=== PATIENT | female | born 1950 | race Two or more races ===

== ENCOUNTER 2017-05-29 09:49 | Day surgery (SDC) | payer MEDICARE ==
[2017-05-29] MEDS ORDERED: MIDAZOLAM 2 MG/2 ML VIAL IVP ONE (09:50)
[2017-05-29] MEDS ORDERED: fentaNYL 100 MCG/2 ML VIAL IVP ONE (09:50)
[2017-05-29] MEDS ORDERED: GLUCAGON 1 MG/ML VIAL IM ONE (09:50)
[2017-05-29] MEDS ORDERED: LACTATED RINGERS 1,000 ML IV ONE ×2 (10:33→11:07)
[2017-05-29] MEDS ORDERED: PROPOFOL 200 MG/20 ML VIAL IVP ONE (11:20)
[2017-05-29 12:17] VITALS: BP 96/66
== END 2017-05-29 09:50 | disposition home or self-care (01) ==
LOC: SDS 09:49
PROVIDERS: ATTEND Surgery
PROC: 0DBK8ZX Excision of Ascending Colon, Via Natural or Artificial Opening Endoscopic, Diagnostic (ICD-10-PCS; principal; 2017-05-29 10:45)
DX: Z12.11 Encounter for screening for malignant neoplasm of colon (principal); D12.2 Benign neoplasm of ascending colon; J44.9 Chronic obstructive pulmonary disease, unspecified
CPT/HCPCS: 45384; J7120

== ENCOUNTER 2017-06-16 08:59 | Outpatient (CLI) | payer MEDICARE ==
[2017-06-16] MEDS ORDERED: ALBUTEROL NEB 2.5 MG/3 ML INH ONE (11:00)
== END 2017-06-16 09:00 | disposition home or self-care (01) ==
LOC: RT 08:59
PROVIDERS: ATTEND Specialist
DX: J44.9 Chronic obstructive pulmonary disease, unspecified (principal)
CPT/HCPCS: 93005; 93041; 94060; 94664; 94729; J7613

== ENCOUNTER 2017-07-02 14:50 | Outpatient (CLI) | payer MEDICARE ==
--- NOTE | 2017-07-04 15:59 | DEXA Report ---
DEXA SCAN: 07/02/2017 CLINICAL INDICATION: Postmenopausal. TECHNIQUE: Dual energy x-ray absorptiometry (DXA) was performed on a [employer] system. Regions measured are the AP spine, femoral neck, and, if needed, forearm. COMPARISON: None. In accordance with the International Society for Clinical Densitometry (ISCD) guidelines, data from previous exams may be reanalyzed using current recommendations and techniques. This is done to allow a more accurate basis for comparison with the current study. FINDINGS: The data for the lumbar spine is as follows: REGION BMD (g/cm/cm) T-SCORE Z-SCORE L1 0.789 -2.8 -0.6 L2 0.845 -3.0 -0.7 L3 0.916 -2.4 -0.1 L4 0.969 -1.9 0.4 TOTAL 0.891 -2.4 -0.1 NOTE: All evaluable vertebrae are used for classification. The data for the hip is as follows: REGION BMD (g/cm/cm) T-SCORE Z-SCORE Neck 0.708 -2.4 -0.4 TOTAL 0.689 -2.5 -0.8 NOTE: The femoral neck or total proximal femur, whichever is lowest, is used for classification. IMPRESSION: THE WHO CLASSIFICATION BASED ON THE INTERNATIONAL REFERENCE STANDARD IS OSTEOPOROSIS. THE FRACTURE RISK IS HIGH. RECOMMENDATION: Patients with diagnosis of osteoporosis or osteopenia should have regular bone mineral density assessment. For those eligible for Medicare, routine testing is allowed once every 2 years. Testing frequency can be increased for patients who have rapidly progressing disease or for those who are receiving medical therapy to restore bone mass. COMMENT: World Health Organization (WHO) definitions for osteoporosis and osteopenia: NORMAL BMD: T-score at 1.0 or higher, fracture risk is low. OSTEOPENIA BMD: T-score between 1.0 and -2.5, fracture risk is increased. OSTEOPOROSIS BMD: T-score at 2.5 or lower, fracture risk high. National Osteoporosis Foundation recommends: 1. Obtain adequate dietary calcium (at least 1200 mg per day) and vitamin D (400 -800 international units per day). 2. Participate, as appropriate, in regular weightbearing and muscle- strengthening exercise. 3. Avoid tobacco use and reduce alcohol and caffeine intake. 4. For more detailed information see the website at www.NOF.org. TD: 07/03/2017 14:16 NEMO
== END 2017-07-02 14:51 | disposition home or self-care (01) ==
LOC: DI 14:50
PROVIDERS: ATTEND Specialist
DX: Z13.820 Encounter for screening for osteoporosis (principal); M81.0 Age-related osteoporosis without current pathological fracture; Z78.0 Asymptomatic menopausal state
CPT/HCPCS: 77080

== ENCOUNTER 2017-07-02 14:51 | Outpatient (CLI) | payer MEDICARE ==
--- NOTE | 2017-07-03 18:33 | Mammography Report ---
DIGITAL SCREENING MAMMOGRAM: 07/02/2017 CLINICAL INDICATION: A 66-year-old with history of late childbearing for baseline. TECHNIQUE: Routine CC and MLO projections as well as bilateral laterally exaggerated craniocaudal views were obtained of the breasts. FINDINGS: The breasts demonstrate heterogeneously dense fibroglandular parenchyma bilaterally. A few punctate, typically benign calcifications are present. No suspicious masses, clustered microcalcifications, or regions of architectural distortion are identified. IMPRESSION: BENIGN FINDINGS. RECOMMENDATIONS: ROUTINE ANNUAL SCREENING UNLESS OTHERWISE CLINICALLY INDICATED. BIRADS category 2 benign findings. STANDARD QUALIFYING STATEMENTS 1. This examination was reviewed with the aid of Computed-Aided Detection (CAD). 2. A negative or benign imaging report should not delay biopsy if clinically suspicious findings are present. Consider surgical consultation if warranted. More than 5% of cancers are not identified by imaging. 3. Dense breasts may obscure an underlying neoplasm. TD: 07/03/2017 18:33
== END 2017-07-02 14:52 | disposition home or self-care (01) ==
LOC: DI 14:51
PROVIDERS: ATTEND Specialist
DX: Z12.31 Encounter for screening mammogram for malignant neoplasm of breast (principal)
CPT/HCPCS: 77067

== ENCOUNTER 2018-02-11 14:12 | Outpatient (CLI) | payer MEDICARE ==
--- NOTE | 2018-02-11 17:03 | Ultrasound Report ---
Reason: LEFT BREAST Procedure Date: 02/11/2018 Accession Number: [id number] / [id number] Procedure: US - Breast Unilateral Limited CPT Code: FULL RESULT: EXAM: Diagnostic Dig LT, Breast Unilateral Limited DATE: 02/11/2018 3:55 PM CLINICAL HISTORY: 67-year-old female presents with a palpable lump in her left breast. TECHNIQUE: Left CC and LM views were obtained. Focused breast ultrasound was also performed. COMPARISON: 07/02/2017. FINDINGS: The breasts demonstrate extremely dense parenchyma bilaterally, limiting the sensitivity of mammography. There is no mammographic finding to correlate with the BB marker placement. Focused breast ultrasound reveals normal breast tissue and the palpable finding is identified as a rib, benign finding. IMPRESSION: Benign findings RECOMMENDATION: Recommend routine annual Screening mammography unless otherwise clinically indicated. BIRADS CATEGORY 2: Benign findings STANDARD QUALIFYING STATEMENTS: 1. This examination was not reviewed with the aid of Computer-Aided Detection (CAD). 2. A negative or benign imaging report should not delay biopsy if clinically suspicious findings are present. Consider surgical consultation if warrented. More than 5% of cancers are not identified by imaging. 3. Dense breasts may obscure an underlying neoplasm.
== END 2018-02-11 14:13 | disposition home or self-care (01) ==
LOC: DI 14:12
PROVIDERS: ATTEND Family Medicine
DX: N63.22 Unspecified lump in the left breast, upper inner quadrant (principal)
CPT/HCPCS: 76642

== ENCOUNTER 2018-08-24 12:29 | Outpatient (CLI) | payer MEDICARE ==
--- NOTE | 2018-08-26 08:58 | MRI Report ---
Reason: BACK PAIN, LUMBAR, WITH RADICULOPATHY Procedure Date: 08/24/2018 Accession Number: [id number] / [id number] Procedure: MRI - Lumbar Spine W/O CPT Code: FULL RESULT: EXAM: MRI LUMBAR SPINE WITHOUT CONTRAST EXAM DATE: 08/24/2018 01:15 PM. CLINICAL HISTORY: Low back pain, lumbar, with radiculopathy. COMPARISON: None. TECHNIQUE: Multiplanar, multisequence T1-weighted and fluid-sensitive sequences of the lumbar spine from T12 to S1 without contrast. Other: None. FINDINGS: Spinal Canal: The conus terminates at L1-L2. The conus medullaris and cauda equina are unremarkable. Alignment: There is a 7 mm grade 1 anterolisthesis at L5-S1. Bone Marrow: Five [id number]-[id number] lumbar vertebral bodies are assumed. There is marrow edema at L4-L5 and L5-S1. Disk Levels/Facets: T12-L1: Unremarkable. L1-L2: There is a broad-based posterior disk bulge with minimal canal narrowing. The foramina are patent. L2-L3: Mild facet joint osteoarthritis. The canal and foramina are patent. L3-L4: There is disk desiccation and loss of disk height. There is mild facet joint osteoarthritis. There is minimal canal narrowing. There is minimal bilateral foraminal narrowing. L4-L5: There is a broad-based posterior disk bulge with moderate facet joint osteoarthritis causing mild canal narrowing. There is moderate bilateral foraminal narrowing. L5-S1: There is moderate canal narrowing secondary to severe facet joint osteoarthritis and an anterolisthesis. Facet joint osteophytes contact both S1 nerve roots in the lateral recesses. There is mild bilateral foraminal narrowing. Musculature: Normal. No edema or fatty atrophy. Other: The partially visualized retroperitoneum is unremarkable. IMPRESSION: 1. There is a grade 1 anterolisthesis at L5-S1. 2. L3-L4: Minimal canal narrowing. There is minimal bilateral foraminal narrowing. 3. L4-L5: Mild canal narrowing. There is moderate bilateral foraminal narrowing. 4. L5-S1: There is moderate canal narrowing secondary to severe facet joint osteoarthritis and an anterolisthesis. Facet joint osteophytes contact both S1 nerve roots in the lateral recesses. There is mild bilateral foraminal narrowing. Comment: The following findings are so common in adults without low back pain that while we report their presence, they must be interpreted with caution and in the context of the clinical situation. (Reference Jakek et al, Spine 2001) Prevalence of findings in patients without low back pain: Disk degeneration (any evidence): 92% Disk desiccation/T2 signal loss: 83% Disk height loss: 56% Disk bulge: 64% Disk protrusion: 32% Annular tear/high intensity zone: 38% RADIA
== END 2018-08-24 12:30 | disposition home or self-care (01) ==
LOC: DI 12:29
PROVIDERS: ATTEND Family Medicine
DX: M51.36 Other intervertebral disc degeneration, lumbar region (principal); M48.061 Spinal stenosis, lumbar region without neurogenic claudication; M47.9 Spondylosis, unspecified; M43.16 Spondylolisthesis, lumbar region; M48.07 Spinal stenosis, lumbosacral region
CPT/HCPCS: 72148

== ENCOUNTER 2020-01-02 11:29 | Outpatient (CLI) | payer MEDICARE ==
[2020-01-02 18:13] LABS: BASOPHILS # (AUTO) 0.1 10^3/uL (0.0-0.1); BASOPHILS % (AUTO) 0.9 %; EOSINOPHILS # (AUTO) 0.3 10^3/uL (0.0-0.7); EOSINOPHILS % (AUTO) 5.7 %; HGB - HEMOGLOBIN 13.4 g/dL (12.0-16.0); LYMPHOCYTES # (AUTO) 2.4 10^3/uL (1.5-3.5); LYMPHOCYTES % (AUTO) 41.2 %; MEAN CORPUSCULAR HEMOGLOBIN 29.3 pg (27.0-31.0); MEAN CORPUSCULAR HGB CONC 30.6 g/dL (32.0-36.0); MEAN CORPUSCULAR VOLUME 95.8 fL (81.0-99.0); MEAN PLATELET VOLUME 9.1 fL (7.9-10.8); MONOCYTES # (AUTO) 0.3 10^3/uL (0.0-1.0); MONOCYTES % (AUTO) 4.8 %; NEUTROPHILS # (AUTO) 2.8 10^3/uL (1.5-6.6); NEUTROPHILS % (AUTO) 47.2 %; PLT - PLATELET COUNT 336 10^3/uL (130-450); RED BLOOD COUNT 4.57 10^6/uL (4.20-5.40); RED CELL DISTRIBUTION WIDTH 12.5 % (12.0-15.0); WHITE BLOOD COUNT 5.8 x10^3/uL (4.8-10.8)
[2020-01-02 18:26] LABS: ALBUMIN/GLOBULIN RATIO 1.1 (1.0-2.2); ALKALINE PHOSPHATASE 39 IU/L (42-121); ALT ALANINE AMINOTRANSFERASE 15 IU/L (10-60); AST ASPARTATE AMINOTRANSFERASE 18 IU/L (10-42); BILIRUBIN,TOTAL 0.8 mg/dL (0.2-1.0); BUN - BLOOD UREA NITROGEN 14 mg/dL (6-20); CALCIUM 9.1 mg/dL (8.5-10.3); CARBON DIOXIDE - CO2 29 mmol/L (21-32); CHLORIDE 105 mmol/L (101-111); CHOLESTEROL 195 mg/dL; CREATININE 0.7 mg/dL (0.4-1.0); GLUCOSE 90 mg/dL (70-100); HDL CHOLESTEROL 66 mg/dL; LDL CHOLESTEROL,CALCULATED 118 mg/dL; LDL/HDL RATIO 1.8 (<4.4); MAGNESIUM 2.3 mg/dL (1.7-2.8); SODIUM 141 mmol/L (135-145); TOTAL PROTEIN 7.7 g/dL (6.7-8.2); VLDL CHOLESTEROL 11 mg/dL
== END 2020-01-02 23:59 | disposition home or self-care (01) ==
LOC: LAB.WCP 11:29
PROVIDERS: ATTEND Family Medicine
DX: Z00.00 Encounter for general adult medical examination without abnormal findings (principal); R05 Cough
CPT/HCPCS: 36415; 80053; 80061; 83721; 83735; 84443; 85025; 86769

== ENCOUNTER 2020-01-05 11:30 | Outpatient (CLI) | payer MEDICARE | END 2020-01-05 23:59 | disposition home or self-care (01) | LOC: COV 11:30 | PROVIDERS: ATTEND Family Medicine | DX: R05 Cough (principal); R53.83 Other fatigue; R06.02 Shortness of breath; Z20.828 Contact with and (suspected) exposure to other viral communicable diseases ==

== ENCOUNTER 2020-01-16 14:23 | Outpatient (CLI) | payer MEDICARE ==
--- NOTE | 2020-01-16 16:35 | DEXA Report ---
PROCEDURE: Dexa Spine and/or Hip INDICATIONS: OSTEOPOROSIS TECHNIQUE: Dual energy x-ray absorptiometry (DXA) was performed on a [employer] System. Regions measur ed are the AP Spine, femoral neck, and if needed forearm. COMPARISON: None. FINDINGS: Lumbar Spine: Bone Mineral Density 0.945 g/cm/cm,T score -2.0, osteopenia Left Hip: Bone Mineral Density 0.678 g/cm/cm,T score -2.6, osteoporosis Left Femoral Neck: Bone Mineral Density 0.724 g/cm/cm, T score -2.3, osteopenia (T score greater or equal to -1.0: NORMAL) (T score from -1.1 to -2.4: OSTEOPENIA) (T score less than or equal to -2.5 to: OSTEOPOROSIS) Impression: Osteoporosis Patients with diagnosis of osteoporosis or osteopenia should have regular bone mineral density assess ment. For those eligible for Medicare, routine testing is allowed once every 2 years. Testing frequ ency can be increased for patients who have rapidly progressing disease or for those who are receivin g medical therapy to restore bone mass. Reviewed by: Letty Middleton MD, PhD on 01/16/2020 4:33 PM PDT Approved by: Letty Middleton MD, PhD on 01/16/2020 4:33 PM PDT Station ID: [id number]
== END 2020-01-16 14:24 | disposition home or self-care (01) ==
LOC: DI 14:23
PROVIDERS: ATTEND Family Medicine
DX: M81.0 Age-related osteoporosis without current pathological fracture (principal)
CPT/HCPCS: 77080

== ENCOUNTER 2020-05-26 13:16 | Outpatient (CLI) | payer MEDICARE ==
--- NOTE | 2020-05-27 12:30 | Mammography Report ---
BILATERAL DIGITAL SCREENING MAMMOGRAM 3D/2D: 05/26/2020 CLINICAL: Routine screening. Comparison is made to exams dated: 02/11/2018 mammogram, 02/11/2018 ultrasound, and 07/02/2017 mammogra m - [facility]. The tissue of both breasts is predominantly fatty. No significant masses, calcifications, or other findings are seen in either breast. There has been no significant interval change. IMPRESSION: NEGATIVE There is no mammographic evidence of malignancy. A 1 year screening mammogram is recommended. This exam was interpreted at Station ID: [id number]. NOTE: For mammograms, a report in lay terms will be sent to the patient. Approximately 15% of breast malignancies will not be visualized mammographically. In the management of a palpable breast mass, a negative mammogram must not discourage biopsy of a clinically suspicious lesion. Electronically Signed By: Dequan Villalpando M.D., jr/russel:05/26/2020 15:21:32 ACR BI-RADS Category 1: Negative 3341F PARENCHYMAL PATTERN: (F) - The breast(s) demonstrate(s) diffuse fatty replacement. BI-RADS CATEGORY: (1) - 1 RECOMMENDATION: (ANNUAL) - Recommend routine annual screening mammography. [id number] 1 year screening LATERALITY: (B)
== END 2020-05-26 13:17 | disposition home or self-care (01) ==
LOC: DI.N 13:16
DX: Z12.31 Encounter for screening mammogram for malignant neoplasm of breast (principal)
CPT/HCPCS: 77067

== ENCOUNTER 2020-07-08 13:12 | Outpatient (CLI) | payer MEDICARE ==
--- NOTE | 2020-07-08 14:08 | XRAY Report ---
PROCEDURE: Chest 2 View X-Ray INDICATIONS: HEMOPTYSIS TECHNIQUE: 2 view(s) of the chest. COMPARISON: Chest x-ray 01/11/2018 FINDINGS: Surgical changes and devices: None. Lungs and pleura: Emphysematous changes are present. Patchy consolidation is noted in the left base. It is relatively stable compared to prior exam. Lungs demonstrate mild hyperexpansion. Mediastinum: Mediastinal contours are normal. Heart size is normal. Bones and chest wall: No suspicious bony abnormalities. Soft tissues appear unremarkable. IMPRESSION: Patchy consolidation within the left base similar in appearance to 2018. While this cou ld represent a chronic focus of infection/inflammation, other etiologies such as malignancy cannot be excluded. CT chest with contrast is recommended for further evaluation. The above findings were called to Dr. Clay Bautista on 07/08/2020 at 1:40 PM. Reviewed by: Rajani Cabrera MD on 07/08/2020 1:46 PM PST Approved by: Rajani Cabrera MD on 07/08/2020 1:46 PM PST Station ID: [id number]
== END 2020-07-08 13:13 | disposition home or self-care (01) ==
LOC: DI.N 13:12
PROVIDERS: ATTEND Emergency Medicine
DX: R04.2 Hemoptysis (principal); J18.1 Lobar pneumonia, unspecified organism

== ENCOUNTER 2020-07-08 14:17 | Emergency (ER) | payer MEDICARE ==
--- NOTE | 2020-07-08 14:59 | ED Physician Documentation ---
History of Present Illness - Stated complaint Stated Complaint: COUGHING UP BLOOD - Chief complaint Chief Complaint: Resp - History obtained from History obtained from: Patient - History of Present Illness Timing: How many days ago (3) Pain level max: 0 Pain level now: 0 - Additonal information Additional information: 69-year-old female presents to the emergency department with a cough for the past 3 days. Has a history of chronic bronchitis and recurrent pneumonia. Started coughing up streaks of blood mixed in with the mucus 3 days ago. Nothing makes it better or worse. No fever. No chills. Does use an inhaler when she is sick. She went to the walk-in clinic today, on chest x-ray there was a patchy consolidation in the left lower lobe which appears on prior x-rays as well. They recommended a CT chest with contrast to exclude malignancy. She was sent here for the CT scan. Patient is in no respiratory distress. No vomiting. Has no hypoxia. Review of Systems Constitutional: denies: Fever, Chills Throat: denies: Sore throat Cardiac: denies: Chest pain / pressure, Palpitations Respiratory: reports: Cough. denies: Dyspnea Skin: denies: Rash Musculoskeletal: denies: Neck pain, Back pain PD PAST MEDICAL HISTORY - Past Medical History Past Medical History: Yes Cardiovascular: High cholesterol Respiratory: Asthma, COPD, Pneumonia Endocrine/Autoimmune: None GI: None : None Psych: None Musculoskeletal: None Derm: None - Past Surgical History General: Colonoscopy Ortho: Arthroscopic surgery - Present Medications Home Medications: Ambulatory Orders Medication Instructions Recorded Confirmed Albuterol Sulfate [Proair Hfa 1 - 2 puffs INH Q4H PRN 05/28/17 05/19/19 Inhaler] Calcium Carbonate [Calcium] 1 tab ORAL DAILY 05/19/19 05/19/19 Cholecalciferol [Vitamin D3] 1 cap ORAL DAILY 05/19/19 05/19/19 Multivit-Min/Folic Acid/Vit K1 1 tab ORAL DAILY 05/19/19 05/19/19 [Multi For Her 50 Plus Softgel] [place]-3/Dha/Epa/Fish Oil [[place] 3 1 cap ORAL DAILY 05/19/19 05/19/19 500 Softgel] Doxycycline Hyclate 100 mg PO BID #20 07/08/20 - Allergies Allergies/Adverse Reactions: Allergies Allergy/AdvReac Type Severity Reaction Status Date / Time No Known Drug Allergies Allergy Verified 07/08/20 14:22 - Social History Does the pt smoke?: No Smoking Status: Never smoker Does the pt drink ETOH?: No Does the pt have substance abuse?: No PD ED PE NORMAL - Vitals Vital signs reviewed: Yes - General General: Alert and oriented X 3, No acute distress - HEENT HEENT: Moist mucous membranes - Neck Neck: Supple, no meningeal sign - Cardiac Cardiac: RRR - Respiratory Respiratory: No respiratory distress, Other (Mild rhonchi in left lower lobe and right lower lobe. No wheezing. No distress) - Abdomen Abdomen: Soft, Non tender, Non distended - Derm Derm: Warm and dry - Neuro Neuro: Alert and oriented X 3 - Psych Psych: Normal mood, Normal affect Results - Vitals Vitals: Vital Signs - 24 hr 07/08/20 07/08/20 14:22 16:35 Temperature 36.6 C Heart Rate 62 74 Respiratory 16 16 Rate Blood Pressure 140/69 H 142/78 H O2 Saturation 98 98 Oxygen O2 Source Room air - Labs Labs: Laboratory Tests 07/08/20 07/08/20 15:07 15:07 WBC 8.0 RBC 4.29 Hgb 13.2 Hct 40.4 MCV 94.2 MCH 30.8 MCHC 32.7 RDW 12.3 Plt Count 325 MPV 8.7 Neut # (Auto) 4.9 Lymph # (Auto) 2.2 Anderson # (Auto) 0.5 Eos # (Auto) 0.3 Baso # (Auto) 0.1 Absolute Nucleated RBC 0.00 Nucleated RBC % 0.0 Sodium 137 Potassium 3.9 Chloride 102 Carbon Dioxide 26 Anion Gap 9.0 BUN 17 Creatinine 0.6 Estimated GFR (MDRD) 99 Glucose 95 Calcium 10.2 Total Bilirubin 0.7 AST 24 ALT 19 Alkaline Phosphatase 45 Total Protein 7.6 Albumin 4.1 Globulin 3.5 Albumin/Globulin Ratio 1.2 - Rads (name of study) CT chest Radiology: Prelim report reviewed, EMP read contemporaneously, See rad report PD MEDICAL DECISION MAKING - ED course Complexity details: reviewed results, re-evaluated patient, considered differential, d/w patient ED course: 69-year-old female presents to the emergency department with left lower lobe bronchiectasis, chronic infectious versus inflammatory process. As she is acutely sick, I will place her on doxycycline. She will also follow-up with her doctor for the thyroid nodule. No evidence of tumor or mass. Patient counseled regarding signs and symptoms for which I believe and urgent re-evaluation would be necessary. Patient with good understanding of and agreement to plan and is comfortable going home at this time This document was made in part using voice recognition software. While efforts are made to proofread this document, sound alike and grammatical errors may occur. Patient is very well-appearing, nontoxic. Afebrile. No hypoxia. No respiratory distress. IMPRESSION: 1. Significant bilateral predominantly left lower lobe bronchiectasis as well as tree-in-bud nodular opacities. Overall appearance is suggestive of a chronic infectious/inflammatory process with subsequent pulmonary sequela. Given appearance has been present since 2018, underlying malignancy is felt to be unlikely. However, interval follow-up is recommended after appropriate therapy to document stability and/or improvement/resolution with treatment. 2. Mild aneurysmal dilation of the ascending thoracic aorta. 3. Low-attenuation focus within the left thyroid lobe. Thyroid ultrasound is recommended for further evaluation. Departure - Departure Disposition: 01 Home, Self Care Clinical Impression: Chronic bronchitis Qualifiers: Chronic bronchitis type: unspecified Qualified Code(s): J42 - Unspecified chronic bronchitis Condition: Good Instructions: ED COPD Flare Follow-Up: Marva Oliveros PA-C [Primary Care Provider] - Within 1 week Prescriptions: Doxycycline Hyclate 100 mg PO BID #20 Comments: Take all antibiotics until gone. Return if you worsen. Do not take your calcium or multivitamin with the doxycycline. The results of your CT scan are below. You should follow-up with your doctor for further care. You also have a low-attenuation focus in your left thyroid lobe, your doctor should order a thyroid ultrasound for this IMPRESSION: 1. Significant bilateral predominantly left lower lobe bronchiectasis as well as tree-in-bud nodular opacities. Overall appearance is suggestive of a chronic infectious/inflammatory process with subsequent pulmonary sequela. Given appearance has been present since 2018, underlying malignancy is felt to be unlikely. However, interval follow-up is recommended after appropriate therapy to document stability and/or improvement/resolution with treatment. 2. Mild aneurysmal dilation of the ascending thoracic aorta. 3. Low-attenuation focus within the left thyroid lobe. Thyroid ultrasound is recommended for further evaluation. Discharge Date/Time: 07/08/20 16:40
[2020-07-08] MEDS ORDERED: IOVERSOL 320 100 ML VIAL IVP ONE ×2 (15:12→17:00)
[2020-07-08 15:17] LABS: BASOPHILS # (AUTO) 0.1 10^3/uL (0.0-0.1); BASOPHILS % (AUTO) 0.8 %; EOSINOPHILS # (AUTO) 0.3 10^3/uL (0.0-0.7); EOSINOPHILS % (AUTO) 3.4 %; HGB - HEMOGLOBIN 13.2 g/dL (12.0-16.0); LYMPHOCYTES # (AUTO) 2.2 10^3/uL (1.5-3.5); MEAN CORPUSCULAR HEMOGLOBIN 30.8 pg (27.0-31.0); MEAN CORPUSCULAR HGB CONC 32.7 g/dL (32.0-36.0); MEAN CORPUSCULAR VOLUME 94.2 fL (81.0-99.0); MEAN PLATELET VOLUME 8.7 fL (7.9-10.8); MONOCYTES # (AUTO) 0.5 10^3/uL (0.0-1.0); MONOCYTES % (AUTO) 5.8 %; NEUTROPHILS # (AUTO) 4.9 10^3/uL (1.5-6.6); NEUTROPHILS % (AUTO) 61.9 %; PLT - PLATELET COUNT 325 10^3/uL (130-450); RED BLOOD COUNT 4.29 10^6/uL (4.20-5.40); RED CELL DISTRIBUTION WIDTH 12.3 % (12.0-15.0)
[2020-07-08 15:31] LABS: ALBUMIN 4.1 g/dL (3.2-5.5); ALBUMIN/GLOBULIN RATIO 1.2 (1.0-2.2); BILIRUBIN,TOTAL 0.7 mg/dL (0.2-1.0); CALCIUM 10.2 mg/dL (8.5-10.3); CREATININE 0.6 mg/dL (0.4-1.0); TOTAL PROTEIN 7.6 g/dL (6.7-8.2)
--- NOTE | 2020-07-08 16:03 | CT Report ---
PROCEDURE: CHEST W INDICATIONS: LLL MASS VS INFECTION ON CXR. CONTRAST: IV CONTRAST: Optiray 320 ml: 80 PO CONTRAST: *NO PO CONTRAST TECHNIQUE: After the administration of intravenous contrast, 5 mm thick sections acquired from the pulmonary api marcus to the posterior costophrenic angles. 7 mm thick coronal MIP reformats were acquired. For radia tion dose reduction, the following was used: automated exposure control, adjustment of mA and/or kV according to patient size. COMPARISON: Chest x-ray 07/08/2020, 01/11/2018 FINDINGS: Image quality: Excellent. Lungs and pleura: As identified on chest x-ray, multiple areas of opacity are noted predominantly wit hin the left base. There also extend into the lingula as well as minimally in the lateral aspect of t he right upper lobe and scattered areas in the right middle and lower lobe. Opacities in the left low er lobe appear most suggestive of bronchiectasis as well as tree-in-bud opacities. There is significa nt bronchial wall thickening extending from the right mainstem bronchus. No pleural effusions or pneu mothorax. Mediastinum: Heart size is normal. No pericardial effusion. No mediastinal or hilar adenopathy by size criteria. Thoracic aorta demonstrates mild aneurysmal dilation measuring 36 mm of the ascending thoracic aorta. Esophagus is normal in caliber. No hiatal hernia. Bones and chest wall: No suspicious bony lesions. No vertebral body compression fractures. No axil armen or supraclavicular adenopathy by size criteria. Thyroid gland demonstrates a 9 mm low-attenuati on focus within the left lobe.. Abdomen: Visualized upper abdominal solid organs appear normal. Upper abdominal bowel loops are nor mal in caliber. IMPRESSION: 1. Significant bilateral predominantly left lower lobe bronchiectasis as well as tree-in-bud nodular opacities. Overall appearance is suggestive of a chronic infectious/inflammatory process with subsequ ent pulmonary sequela. Given appearance has been present since 2018, underlying malignancy is felt to be unlikely. However, interval follow-up is recommended after appropriate therapy to document stabil ity and/or improvement/resolution with treatment. 2. Mild aneurysmal dilation of the ascending thoracic aorta. 3. Low-attenuation focus within the left thyroid lobe. Thyroid ultrasound is recommended for further evaluation. Reviewed by: Rajani Cabrera MD on 07/08/2020 4:02 PM PST Approved by: Rajani Cabrera MD on 07/08/2020 4:02 PM PST Station ID: [id number]
[2020-07-08 16:43] VITALS: BP 142/78
== END 2020-07-08 16:40 | disposition home or self-care (01) ==
LOC: ED 14:17
DX: J47.9 Bronchiectasis, uncomplicated (principal); J42 Unspecified chronic bronchitis; E04.1 Nontoxic single thyroid nodule; R04.2 Hemoptysis; J18.1 Lobar pneumonia, unspecified organism
CPT/HCPCS: 36415; 71046; 71260; 80053; 85025; 99284; Q9967

== ENCOUNTER 2020-07-14 08:00 | Outpatient (CLI) | payer MEDICARE | END 2020-07-14 23:59 | disposition home or self-care (01) | LOC: LAB.R 08:00 | PROVIDERS: ATTEND Internal Medicine | DX: J47.9 Bronchiectasis, uncomplicated (principal); A31.9 Mycobacterial infection, unspecified | CPT/HCPCS: 87102; 87206 ==

== ENCOUNTER 2020-07-15 08:00 | Outpatient (CLI) | payer MEDICARE | END 2020-07-15 23:59 | disposition home or self-care (01) | LOC: LAB.R 08:00 | PROVIDERS: ATTEND Internal Medicine | DX: J47.9 Bronchiectasis, uncomplicated (principal); A31.9 Mycobacterial infection, unspecified | CPT/HCPCS: 81599; 87556; 87561 ==

== ENCOUNTER 2020-07-16 15:30 | Outpatient (CLI) | payer MEDICARE | END 2020-07-16 23:59 | disposition home or self-care (01) | LOC: LAB.R 15:30 | PROVIDERS: ATTEND Internal Medicine | DX: J47.9 Bronchiectasis, uncomplicated (principal); A31.9 Mycobacterial infection, unspecified | CPT/HCPCS: 81599; 87070; 87077; 87181; 87205; 87556; 87561 ==

== ENCOUNTER 2020-07-17 07:00 | Outpatient (CLI) | payer MEDICARE | END 2020-07-17 23:59 | disposition home or self-care (01) | LOC: LAB.R 07:00 | PROVIDERS: ATTEND Internal Medicine | DX: J47.9 Bronchiectasis, uncomplicated (principal); A31.9 Mycobacterial infection, unspecified | CPT/HCPCS: 81599; 87070; 87077; 87186; 87205 ==

== ENCOUNTER 2020-07-18 13:32 | Outpatient (CLI) | payer MEDICARE ==
[2020-07-18] MEDS ORDERED: ALBUTEROL 1 PUFF INH ONE (13:33)
[2020-07-30] MEDS ORDERED: ALBUTEROL 1 PUFF INH STA (10:20)
== END 2020-07-18 13:33 | disposition home or self-care (01) ==
LOC: RT 13:32
PROVIDERS: ATTEND Emergency Medicine
DX: R04.2 Hemoptysis (principal)
CPT/HCPCS: 94060

== ENCOUNTER 2020-07-23 15:44 | Outpatient (CLI) | payer MEDICARE ==
--- NOTE | 2020-07-23 16:47 | Ultrasound Report ---
PROCEDURE: Head or Neck Soft Tissue INDICATIONS: THYROID NODULE TECHNIQUE: Real-time scanning was performed of the thyroid gland, with image documentation. COMPARISON: None FINDINGS: Right: Thyroid lobe measures 6.5 x 1.5 x 1.6 cm, and is homogeneous in echotexture. Left: Thyroid lobe measures 5.4 x 1.9 x 1.6 cm, and is homogenous in echotexture. Isthmus: 2 mm thick. Nodule number: One Location: Right lobe Size: 1.1 x 0.8 x 0.8 cm. Composition: Solid Echogenicity: Hyperechoic Shape: wider than tall. Margins: Irregular Echogenic foci: None Total points: 3 ACR TI-RADS category: Mildly suspicious Nodule number: Two Location: Left lobe Size: 2.2 x 1.3 x 1.1 cm. Composition: Predominately cystic Echogenicity: Anechoic Shape: wider than tall. Margins: Irregular Echogenic foci: None Total points: 0 ACR TI-RADS category: Benign IMPRESSION: Thyroid nodules as above. Cystic thyroid lesion #2 demonstrates mural nodularity without punctate calcifications or definite vascularity however recommend follow-up in one year to exclude c ystic papillary neoplasm. No further follow-up necessary for the right thyroid lesion ACR TI-RADS definitions and recommendations: TI-RADS 1 (benign): 0 points. FNA not needed. TI-RADS 2 (not suspicious): 2 points. FNA not needed. TI-RADS 3 (mildly suspicious): 3 points. ? FNA if 2.5 cm or larger, follow up if 1.5 cm or larger (at 1, 3, and 5 years). TI-RADS 4 (moderately suspicious): 4-6 points. ? FNA if 1.5 cm or larger, follow up if 1 cm or larger (at 1, 2, 3, and 5 years). TI-RADS 5 (highly suspicious): 7 points or more. ? FNA if 1 cm or larger, follow up if 0.5 cm or larger (every year for 5 years). Reviewed by: Seth Miller MD on 07/23/2020 4:46 PM PST Approved by: Seth Miller MD on 07/23/2020 4:46 PM PST Station ID: [id number]
== END 2020-07-23 15:45 | disposition home or self-care (01) ==
LOC: DI 15:44
PROVIDERS: ATTEND Physician Assistant Medical
DX: E04.2 Nontoxic multinodular goiter (principal)

== ENCOUNTER 2020-08-23 10:12 | Day surgery (SDC) | payer MEDICARE ==
[2020-08-23 11:09] VITALS: BP 139/78
--- NOTE | 2020-08-23 12:11 | ANESTHESIA PROCEDURE NOTE ---
Anesth Central Line Template - Central Line Central Line Preparation: Consent Obtained, Unable to obtain consent, Time out completed, Ultrasound used, Sterile prep and drape Central line location: Left Basilic Central line type: PICC Single Lumen Central line catheter tip site resides: Superior vena cava (SVC) Central line aftercare: Secured, Placement confirmed, No pneumothorax, No complications, Bundle checklist complete, Pt tolerated well (4Fr single lumen cath placed at L basilic. Attempt @R x2, unable to thread past clavicle. L cath cut at 37, threadd to 37. Capped. Blood easily aspirates and flushes. Secured with stat-lock, tegaderm.)
--- NOTE | 2020-08-23 12:13 | XRAY Report ---
PROCEDURE: Chest for Line Placement INDICATIONS: PICC LINE PLACEMENT TECHNIQUE: One view of the chest was acquired. COMPARISON: 07/08/2020 FINDINGS: Surgical changes and devices: New left PICC line is present. The tip projects over the mid superior v mark cava region.. Lungs and pleura: No pleural effusions or pneumothorax. Lungs demonstrate a chronic patchy alveolar opacity in the left lower lung zone without significant change, and small right lower lobe opacity. Lungs otherwise are hyperinflated Mediastinum: Mediastinal contours appear normal. Heart size is normal. Bones and chest wall: No suspicious bony lesions. Overlying soft tissues appear unremarkable. IMPRESSION: 1. Adequate placement of left-sided PICC line. 2. Chronic, relatively stable bilateral lower lung alveolar opacities. 3. Findings superimposed on emphysema. Reviewed by: Berenice Godinez MD on 08/23/2020 11:12 AM SAJAN Approved by: Berenice Godinez MD on 08/23/2020 11:12 AM SAJAN Station ID: [id number]
--- OUTSIDE RECORDS SUMMARY | 2020-08-25 03:12 | EXTERNAL MEDICAL SUMMARY RPT | Continuity of Care Document ---
:1950 Demographics Phone Unavailable Preferred Language Unknown Marital Status Unknown Taoist Affiliation Unknown Race Unknown Ethnic Group Unknown Author Organization [facility] Address [address] [place] [address] Phone Social History date description facility [id number]
== END 2020-08-23 10:13 | disposition home or self-care (01) ==
LOC: SDS 10:12
PROVIDERS: ATTEND Registered Nurse
DX: J47.9 Bronchiectasis, uncomplicated (principal)
CPT/HCPCS: 36569

== ENCOUNTER 2021-06-07 11:29 | Outpatient (CLI) | payer MEDICARE ==
--- NOTE | 2021-06-08 11:39 | Mammography Report ---
BILATERAL DIGITAL SCREENING MAMMOGRAM 3D/2D: 06/07/2021 CLINICAL: Routine screening. Comparison is made to exams dated: 05/26/2020 mammogram, 02/11/2018 mammogram, 02/11/2018 ultrasound, an d 07/02/2017 mammogram - [facility]. The tissue of both breasts is extremely dense, which lowers the sensitivity of mammography. No significant masses, calcifications, or other findings are seen in either breast. There has been no significant interval change. IMPRESSION: NEGATIVE There is no mammographic evidence of malignancy. A 1 year screening mammogram is recommended. This exam was interpreted at Station ID: [id number]. NOTE: For mammograms, a report in lay terms will be sent to the patient. Approximately 15% of breast malignancies will not be visualized mammographically. In the management of a palpable breast mass, a negative mammogram must not discourage biopsy of a clinically suspicious lesion. Electronically Signed By: Sean Moore M.D. aty/penrad:06/07/2021 17:34:41 ACR BI-RADS Category 1: Negative 3341F PARENCHYMAL PATTERN: (VD) - The breast(s) demonstrate(s) extremely dense parenchyma, limiting the sen sitivity of mammography. BI-RADS CATEGORY: (1) - 1 RECOMMENDATION: (ANNUAL) - Recommend routine annual screening mammography. [id number] 1 year screening LATERALITY: (B)
== END 2021-06-07 11:30 | disposition home or self-care (01) ==
LOC: DI.N 11:29
DX: Z12.31 Encounter for screening mammogram for malignant neoplasm of breast (principal)

== ENCOUNTER 2021-08-05 14:36 | Outpatient (CLI) | payer MEDICARE ==
[2021-08-05 18:41] LABS: BASOPHILS # (AUTO) 0.1 10^3/uL (0.0-0.1); BASOPHILS % (AUTO) 0.8 %; EOSINOPHILS # (AUTO) 2.6 10^3/uL (0.0-0.7); EOSINOPHILS % (AUTO) 20.3 %; HCT - HEMATOCRIT 41.6 % (37.0-47.0); HGB - HEMOGLOBIN 13.5 g/dL (12.0-16.0); LYMPHOCYTES # (AUTO) 2.4 10^3/uL (1.5-3.5); LYMPHOCYTES % (AUTO) 18.9 %; MEAN CORPUSCULAR HEMOGLOBIN 30.1 pg (27.0-31.0); MEAN CORPUSCULAR HGB CONC 32.5 g/dL (32.0-36.0); MEAN CORPUSCULAR VOLUME 92.9 fL (81.0-99.0); MEAN PLATELET VOLUME 9.2 fL (7.9-10.8); MONOCYTES # (AUTO) 0.7 10^3/uL (0.0-1.0); MONOCYTES % (AUTO) 5.2 %; NEUTROPHILS % (AUTO) 54.5 %; PLT - PLATELET COUNT 429 10^3/uL (130-450); RED BLOOD COUNT 4.48 10^6/uL (4.20-5.40); RED CELL DISTRIBUTION WIDTH 12.1 % (12.0-15.0); WHITE BLOOD COUNT 12.8 x10^3/uL (4.8-10.8)
[2021-08-05 18:56] LABS: SLIDE REVIEW? Indicated
[2021-08-05 19:11] LABS: THYROID STIMULATING HORMONE 0.86 uIU/mL (0.34-5.60)
[2021-08-05 19:12] LABS: ALBUMIN 3.9 g/dL (3.2-5.5); ALBUMIN/GLOBULIN RATIO 0.9 (1.0-2.2); ALKALINE PHOSPHATASE 58 IU/L (42-121); ALT ALANINE AMINOTRANSFERASE 17 IU/L (10-60); AMYLASE 80 U/L (28-100); AST ASPARTATE AMINOTRANSFERASE 23 IU/L (10-42); BILIRUBIN,TOTAL 0.5 mg/dL (0.2-1.0); BUN - BLOOD UREA NITROGEN 21 mg/dL (6-20); CARBON DIOXIDE - CO2 27 mmol/L (21-32); CHLORIDE 100 mmol/L (101-111); CHOL/HDL RATIO 2.8 (<4.4); CHOLESTEROL 175 mg/dL; CREATININE 0.7 mg/dL (0.4-1.0); GFR - MDRD 83 (>89); GLUCOSE 91 mg/dL (70-100); HDL CHOLESTEROL 62 mg/dL; LDL CHOLESTEROL,CALCULATED 103 mg/dL; LDL/HDL RATIO 1.7 (<4.4); LIPASE 42 U/L (22-51); POTASSIUM 3.9 mmol/L (3.5-5.0); SODIUM 140 mmol/L (135-145); TOTAL PROTEIN 8.3 g/dL (6.7-8.2); TRIGLYCERIDES 51 mg/dL; VLDL CHOLESTEROL 10 mg/dL
[2021-08-05 19:37] LABS: DIFFERENTIAL COMMENT MANUAL=AUTO DIFF; PLATELET ESTIMATE, MANUAL NORMAL (130-450,000) (NORMAL); PLATELET MORPHOLOGY NORMAL APPEARANCE (NORMAL); RBC MORPHOLOGY (MULTIPLE) NORMAL APPEARANCE (NORMAL)
== END 2021-08-05 14:37 | disposition home or self-care (01) ==
LOC: LAB.N 14:36
PROVIDERS: ATTEND Nurse Practitioner Family
DX: R10.13 Epigastric pain (principal); R91.8 Other nonspecific abnormal finding of lung field; J20.9 Acute bronchitis, unspecified; J22 Unspecified acute lower respiratory infection; J47.9 Bronchiectasis, uncomplicated; K21.9 Gastro-esophageal reflux disease without esophagitis; J45.909 Unspecified asthma, uncomplicated; F32.A Depression, unspecified
CPT/HCPCS: 36415; 80053; 80061; 81599; 82150; 82784; 83690; 83721; 84443; 85025

== ENCOUNTER 2021-08-11 13:28 | Outpatient (CLI) | payer MEDICARE ==
[2021-08-11] MEDS ORDERED: IOVERSOL 320 100 ML VIAL IVP ONE ×2 (14:03→18:43)
--- NOTE | 2021-08-11 15:44 | CT Report ---
PROCEDURE: CHEST W INDICATIONS: LOWER RES INFECTION, ABN CHEST CT, BRONCHIECTASIS CONTRAST: IV CONTRAST: Optiray 320 ml: 100 PO CONTRAST: *NO PO CONTRAST TECHNIQUE: After the administration of intravenous contrast, 1 mm axial images were acquired from the pulmonary apices through the posterior costophrenic angles. Axial 5 mm soft tissue kernel reconstructions were performed as well as 8 mm axial MIP and coronal and sagittal 5 mm reformations. For radiation dose reduction, the following was used: automated exposure control, adjustment of mA and/or kV according to patient size. COMPARISON: 07/08/2020. FINDINGS: Image quality: Excellent. Lungs and pleura: Complete collapse of the anterior segment of the right upper lobe. Consider mucous plugging. The right upper lobe was previously well aerated on the study dated 07/08/2020. Extensive ad vanced diffuse cystic bronchiectasis involving the left lower lobe basilar segments and lingula. This appears similar to previously. Right lower lobe and right middle lobe cystic bronchiectasis appears similar, as well. There are now multiple focal airspace densities in the anterior basal portion of th e right lower lobe which have an appearance of a combination of mucous plugging and focal bronchopneu monia. Patchy density in the right middle lobe is similar to previous. Patchy multifocal right upper lobe pneumonia. Mediastinum: Heart size is normal. No pericardial effusion. No mediastinal or hilar adenopathy by size criteria. Development of shotty right hilar adenopathy, likely reactive in nature. Thoracic aor ta and central pulmonary arteries are normal in size. Ascending aorta is not frankly aneurysmal. Esop hagus is normal in caliber. No hiatal hernia. Bones and chest wall: No suspicious bony lesions. No vertebral body compression fractures. No axil armen or supraclavicular adenopathy by size criteria. The thyroid is normal in size and there are no incidental findings.. Abdomen: Visualized upper abdominal solid organs appear normal. Upper abdominal bowel loops are nor mal in caliber. IMPRESSION: 1. Remarkably advanced diffuse cystic bronchiectasis in the basilar segments of left lower lobe and l eft lingula, and to a lesser extent in the right lower lobe and right middle lobe. This was previousl y present. 2. Dense collapse of the anterior segment of the right upper lobe, possibly secondary to this finding . 3. Patchy pneumonia involving the right lower lobe and right upper lobe. Comment: Recommend repeat CT of the chest with contrast in 2-3 months to document resolution of the d ense segmental right upper lobe collapse. CLINICAL RECOMMENDATION STATEMENTS: In patients <35 years with an ITN detected on CT, MRI, or extrathyroidal ultrasound, the Committee re commends further evaluation with dedicated thyroid ultrasound if the nodule is "e1 cm and has no susp icious imaging features, and if the patient has normal life expectancy. In patients "e35 years with an ITN detected on CT, MRI, or extrathyroidal ultrasound, the Committee r ecommends further evaluation with dedicated thyroid ultrasound if the nodule is "e1.5 cm and has no s uspicious imaging features, and if the patient has normal life expectancy. (ACR, 2014) Reviewed by: Georges Chu MD on 08/11/2021 3:43 PM PDT Approved by: Georges Chu MD on 08/11/2021 3:43 PM PDT Station ID: [id number]
== END 2021-08-11 13:29 | disposition home or self-care (01) ==
LOC: DI 13:28
PROVIDERS: ATTEND Nurse Practitioner Family
DX: J47.0 Bronchiectasis with acute lower respiratory infection (principal); J18.9 Pneumonia, unspecified organism; J98.11 Atelectasis
CPT/HCPCS: 71260; Q9967

== ENCOUNTER 2021-08-15 14:04 | Outpatient (CLI) | payer MEDICARE ==
--- NOTE | 2021-08-16 17:26 | Ultrasound Report ---
PROCEDURE: Head or Neck Soft Tissue INDICATIONS: THYROID NODULE TECHNIQUE: Real-time scanning was performed of the thyroid gland, with image documentation. COMPARISON: 07/23/2020 FINDINGS: Right: Thyroid lobe measures 5.8 x 1.4 x 1.7 cm, and is homogeneous in echotexture. Left: Thyroid lobe measures 4.9 x 2 x 1.5 cm, and is homogenous in echotexture. Isthmus: 2.3 mm thick. Nodule number: One Location: Right thyroid lobe Size: 1.1 x 0.8 x 0.9 CM, unchanged from previous study. Composition: Solid Echogenicity: Hyperechoic Shape: Wider than tall. Margins: Irregular Echogenic foci: None Total points: 3 ACR TI-RADS category: Mildly suspicious. Nodule number: Two Location: Left thyroid lobe Size: 2.4 x 1.5 x 1.3 cm. Previously measures 2.2 x 1.3 x 1.1 Composition: Cystic Echogenicity: Anechoic Shape: wider than tall. Margins: Irregular Echogenic foci: None Total points: 0 ACR TI-RADS category: Benign. IMPRESSION: 1. Mildly suspicious right thyroid nodule is stable in size and appearance. Continued ultrasound surv eillance is recommended. 2. Interval slight increase in size of patient's known benign cyst in left thyroid lobe. 3. No new thyroid nodule is seen. ACR TI-RADS definitions and recommendations: TI-RADS 1 (benign): 0 points. FNA not needed. TI-RADS 2 (not suspicious): 2 points. FNA not needed. TI-RADS 3 (mildly suspicious): 3 points. "FNA if 2.5 cm or larger, follow up if 1.5 cm or larger (at 1, 3, and 5 years). TI-RADS 4 (moderately suspicious): 4-6 points. "FNA if 1.5 cm or larger, follow up if 1 cm or larger (at 1, 2, 3, and 5 years). TI-RADS 5 (highly suspicious): 7 points or more. "FNA if 1 cm or larger, follow up if 0.5 cm or larger (every year for 5 years). Reviewed by: Denny Graf MD on 08/16/2021 5:25 PM PDT Approved by: Denny Graf MD on 08/16/2021 5:25 PM PDT Station ID: [id number]
== END 2021-08-15 14:05 | disposition home or self-care (01) ==
LOC: DI 14:04
PROVIDERS: ATTEND Nurse Practitioner Family
DX: E04.2 Nontoxic multinodular goiter (principal)

== ENCOUNTER 2021-09-19 16:31 | Outpatient (CLI) | payer MEDICARE ==
--- NOTE | 2021-09-19 17:58 | XRAY Report ---
PROCEDURE: Chest 2 View X-Ray INDICATIONS: PNEUMONIA TECHNIQUE: 2 view(s) of the chest. COMPARISON: Chest film dated 08/23/2020, chest CT dated 08/11/2021. FINDINGS: Surgical changes and devices: None. Lungs and pleura: No pleural effusions or pneumothorax. Chronic bibasilar inflammatory process inclu ding extensive cystic bronchiectasis in the basilar segments of the left lower lobe and lingula of th e left lung, with involvement of the right middle lobe and right lower lobe as well. Question mild pr ogression since the prior plain film. Mediastinum: Mediastinal contours are normal. Heart size is normal. Bones and chest wall: No suspicious bony abnormalities. Soft tissues appear unremarkable. IMPRESSION: Extensive chronic changes of cystic bronchiectasis involving the left lower lobe, lingul a, and to a lesser extent the right middle lobe and right lower lobe. Reviewed by: Georges Chu MD on 09/19/2021 5:57 PM PDT Approved by: Georges Chu MD on 09/19/2021 5:57 PM PDT Station ID: [id number]
== END 2021-09-19 16:32 | disposition home or self-care (01) ==
LOC: DI.N 16:31
PROVIDERS: ATTEND Family Medicine
DX: J47.9 Bronchiectasis, uncomplicated (principal)

== ENCOUNTER 2021-10-27 08:00 | Outpatient (CLI) | payer MEDICARE ==
--- NOTE | 2021-10-27 18:29 | XRAY Report ---
PROCEDURE: Lumbar Spine 2 View INDICATIONS: LUMBAGO W/ SCIATICA TECHNIQUE: 3 views of the lumbar spine were acquired. COMPARISON: None. FINDINGS: Bones: 5 [id number] vertebrae are present. There is partial normalization of the first sacral element. There is normal bony alignment. No vertebral body compression fractures. No suspicious bon y lesions. Grade 1 anterior degenerative spinal listhesis noted at L5-S1 Soft tissues: Overlying bowel gas pattern is normal. No suspicious soft tissue calcifications. Lar ge uterine calcified fibroid noted. IMPRESSION: Transitional anatomy noted. Partial lumbarization of the S1 vertebral segment. Degenerative grade 1 anterior spinal listhesis at L5-S1 Calcified uterine fibroid Reviewed by: Nilton Whaley MD on 10/27/2021 5:28 PM AKDT Approved by: Nilton Whaley MD on 10/27/2021 5:28 PM AKDT Station ID: [id number]
== END 2021-10-27 23:59 | disposition home or self-care (01) ==
LOC: DI.N 08:00
PROVIDERS: ATTEND Registered Nurse
DX: M43.17 Spondylolisthesis, lumbosacral region (principal); M54.17 Radiculopathy, lumbosacral region; D25.9 Leiomyoma of uterus, unspecified

== ENCOUNTER 2021-11-14 20:53 | Outpatient (CLI) | payer MEDICARE ==
--- NOTE | 2021-11-22 17:17 | Ultrasound Report ---
PROCEDURE: Head or Neck Soft Tissue INDICATIONS: NECK LUMP OR MASS TECHNIQUE: Real time scanning was performed of the neck region of interest, with image documentation . COMPARISON: None. FINDINGS: No abnormal mass identified in the left supraclavicular fossa and the area of clinical inte rest. No soft tissue fluid collections or soft tissue edema identified in the area of clinical intere st. No lymphadenopathy identified in the area of clinical interest. IMPRESSION: No sonographic abnormality identified in the area of clinical interest. If there is continued clinica l concern for pathology, consider CT scan of soft tissues of the neck with contrast for additional ev aluation. Reviewed by: Letty Middleton MD, PhD on 11/22/2021 5:15 PM PDT Approved by: Letty Middleton MD, PhD on 11/22/2021 5:15 PM PDT Station ID: [id number]
== END 2021-11-14 20:54 | disposition home or self-care (01) ==
LOC: DI 20:53
PROVIDERS: ATTEND Registered Nurse
DX: R22.1 Localized swelling, mass and lump, neck (principal)

== ENCOUNTER 2022-02-03 14:55 | Outpatient (CLI) | payer MEDICARE ==
--- NOTE | 2022-02-06 09:49 | Ultrasound Report ---
PROCEDURE: Pelvic w/Transvaginal INDICATIONS: LEIOMYOMA OF UTERUS TECHNIQUE: Real-time scanning was performed of the pelvic organs, with image documentation. Additional endovagi nal scanning was necessary due to incomplete visualization of the adnexal and endometrial structures by transabdominal scanning. COMPARISON: None. FINDINGS: Uterus: Uterus is retroverted and measures 6.8 x 5.7 x 10.0 cm. The myometrium is heterogeneous wit h foci of calcification. The endometrium measures 4.1 mm in combined thickness. There are 2 ossifie d uterine fibroids. A 8.2 x 6.8 cm intramural fibroid is seen in the right uterine wall, and a 5.3 x 6 point centimeter intramural fibroid is seen in the left uterine wall. Ovaries: The right ovary measures 1.8 x 1.1 cm. The left ovary measures 0.9 x 1.0 cm. The ovaries have a normal sonographic appearance. Less than 12 follicles can be seen in each ovary. No adnexal masses are seen. Other: No pathologic free abdominal or pelvic fluid. IMPRESSION: 1. Markedly limited examination secondary to large calcified uterine fibroids with shadowing, which o bscure adjacent structures. 2. Myomatous uterus with 2 large calcified uterine fibroids. 3. Visualized ovaries are grossly normal. Reviewed by: Joe Amos MD on 02/06/2022 9:48 AM PDT Approved by: Joe Amos MD on 02/06/2022 9:48 AM PDT Station ID: [id number]
== END 2022-02-03 14:56 | disposition home or self-care (01) ==
LOC: DI 14:55
PROVIDERS: ATTEND Family Medicine
DX: D25.1 Intramural leiomyoma of uterus (principal)

== ENCOUNTER 2022-06-06 15:09 | Outpatient (CLI) | payer MEDICARE ==
--- NOTE | 2022-06-07 11:56 | Mammography Report ---
BILATERAL DIGITAL SCREENING MAMMOGRAM 3D/2D: 06/06/2022 CLINICAL: Routine screening. Comparison is made to exams dated: 06/07/2021 mammogram, 05/26/2020 mammogram, 02/11/2018 mammogram, and 07/02/2017 mammogram - [facility]. Both breasts are heterogeneously dense, which may obscure small masses (category c / 51-75% glandular tissue). No significant masses, calcifications, or other findings are seen in either breast. There has been no significant interval change. IMPRESSION: NEGATIVE There is no mammographic evidence of malignancy. A 1 year screening mammogram is recommended. Based on the Tyrer Cuzick model (a risk assessment model) the patients lifetime risk is 8.5% and her 10 year risk is 5.4%. According to the ACR, ACS, and NCCN guidelines, an annual breast MRI exam erika g with mammogram is recommended if the patients lifetime risk is 20% or greater. This exam was interpreted at Station ID: [id number]. NOTE: For mammograms, a report in lay terms will be sent to the patient. Approximately 15% of breast malignancies will not be visualized mammographically. In the management of a palpable breast mass, a negative mammogram must not discourage biopsy of a clinically suspicious lesion. Electronically Signed By: Sean paul/russel:06/07/2022 08:42:44 ACR BI-RADS Category 1: Negative 3341F PARENCHYMAL PATTERN: (D) - The breast(s) demonstrate(s) heterogeneously dense fibroglandular pratibha [place]led[place]. BI-RADS CATEGORY: (1) - 1 RECOMMENDATION: (ANNUAL) - Recommend routine annual screening mammography. [id number] 1 year screening LATERALITY: (B)
== END 2022-06-06 15:10 | disposition home or self-care (01) ==
LOC: DI 15:09
PROVIDERS: ATTEND Obstetrics & Gynecology
DX: Z12.31 Encounter for screening mammogram for malignant neoplasm of breast (principal)

== ENCOUNTER 2022-12-14 13:45 | Outpatient (CLI) | payer MEDICARE ==
--- NOTE | 2022-12-14 16:03 | Ultrasound Report ---
PROCEDURE: Head or Neck Soft Tissue INDICATIONS: THYROID NODULE TECHNIQUE: Real-time scanning was performed of the thyroid gland, with image documentation. COMPARISON: Thyroid ultrasound 11/14/2021, 08/15/2021 FINDINGS: Right: Thyroid lobe measures 6.3 x 1.7 x 1.7 cm, and is homogeneous in echotexture. Left: Thyroid lobe measures 4.9 x 1.2 x 1.4 cm, and is homogenous in echotexture. Isthmus: 2 mm thick. Nodule number: One Location: Right lateral Size: 0.7 x 0.8 x 1.1 cm compared to 0.8 x 0.9 x 1.1 cm. Composition: Solid. Echogenicity: Hypoechoic. Shape: wider than tall. Margins: Smooth (0 points). Echogenic foci: None (0 points). Total points: 4 ACR TI-RADS category: 4. Nodule number: Two Location: Right inferior Size: 0.3 x 0.5 x 0.3 cm. Composition: Cyst. Echogenicity: And. Shape: wider than tall. Margins: Smooth (0 points). Echogenic foci: None (0 points). Total points: 0 ACR TI-RADS category: 1. Nodule number: Three Location: Left mid Size: 0.7 x 1.1 x 0.7 cm compared to 2.4 x 1.5 x 1.3 cm. Composition: Partially cystic Echogenicity: Isoechoic/hypoechoic. Shape: wider than tall. Margins: Smooth (0 points). Echogenic foci: None (0 points). Total points: 3 ACR TI-RADS category: 3. IMPRESSION: Lesion 1 is considered category 4. Secondary to small size, no additional follow-up is r ecommended. Lesion 2 is considered category 1. Secondary to appearance, no additional follow-up is recommended. Lesion 3 has decreased in size compared to prior exam there appears most consistent with a coarsely c ollapsed cyst with internal echoes. One year follow-up is recommended secondary to change in appearan ce compared to prior exam. ACR TI-RADS definitions and recommendations: TI-RADS 1 (benign): 0 points. FNA not needed. TI-RADS 2 (not suspicious): 2 points. FNA not needed. TI-RADS 3 (mildly suspicious): 3 points. "FNA if 2.5 cm or larger, follow up if 1.5 cm or larger (at 1, 3, and 5 years). TI-RADS 4 (moderately suspicious): 4-6 points. "FNA if 1.5 cm or larger, follow up if 1 cm or larger (at 1, 2, 3, and 5 years). TI-RADS 5 (highly suspicious): 7 points or more. "FNA if 1 cm or larger, follow up if 0.5 cm or larger (every year for 5 years). Reviewed by: Rajani Cabrera MD on 12/14/2022 4:01 PM PDT Approved by: Rajani Cabrera MD on 12/14/2022 4:01 PM PDT Station ID: [id number]
== END 2022-12-14 13:46 | disposition home or self-care (01) ==
LOC: DI 13:45
PROVIDERS: ATTEND Internal Medicine
DX: E04.2 Nontoxic multinodular goiter (principal)

== ENCOUNTER 2023-04-30 11:30 | Outpatient (CLI) | payer MEDICARE ==
[2023-04-30 17:59] LABS: BASOPHILS # (AUTO) 0.1 10^3/uL (0.0-0.1); EOSINOPHILS # (AUTO) 0.8 10^3/uL (0.0-0.7); EOSINOPHILS % (AUTO) 10.8 %; HCT - HEMATOCRIT 41.5 % (37.0-47.0); HGB - HEMOGLOBIN 13.2 g/dL (12.0-16.0); LYMPHOCYTES # (AUTO) 2.8 10^3/uL (1.5-3.5); LYMPHOCYTES % (AUTO) 40.6 %; MEAN CORPUSCULAR HEMOGLOBIN 30.6 pg (27.0-31.0); MEAN CORPUSCULAR HGB CONC 31.8 g/dL (32.0-36.0); MEAN CORPUSCULAR VOLUME 96.1 fL (81.0-99.0); MEAN PLATELET VOLUME 9.3 fL (7.9-10.8); MONOCYTES # (AUTO) 0.4 10^3/uL (0.0-1.0); MONOCYTES % (AUTO) 5.2 %; NEUTROPHILS % (AUTO) 42.3 %; PLT - PLATELET COUNT 339 10^3/uL (130-450); RED BLOOD COUNT 4.32 10^6/uL (4.20-5.40); RED CELL DISTRIBUTION WIDTH 12.4 % (12.0-15.0)
[2023-04-30 18:25] LABS: ALBUMIN 3.9 g/dL (3.2-5.5); ALBUMIN/GLOBULIN RATIO 1.1 (1.0-2.2); ALKALINE PHOSPHATASE 49 IU/L (42-121); ALT ALANINE AMINOTRANSFERASE 12 IU/L (10-60); AST ASPARTATE AMINOTRANSFERASE 17 IU/L (10-42); BILIRUBIN,TOTAL 0.5 mg/dL (0.2-1.0); BUN - BLOOD UREA NITROGEN 15 mg/dL (6-20); CALCIUM 9.7 mg/dL (8.5-10.3); CARBON DIOXIDE - CO2 31 mmol/L (21-32); CHLORIDE 106 mmol/L (101-111); CHOLESTEROL 159 mg/dL; CREATININE 0.7 mg/dL (0.6-1.3); GFR - MDRD 82 (>89); GLUCOSE 89 mg/dL (74-104); HDL CHOLESTEROL 53 mg/dL; LDL CHOLESTEROL,CALCULATED 90 mg/dL; LDL/HDL RATIO 1.7 (<4.4); POTASSIUM 4.2 mmol/L (3.5-4.5); SODIUM 140 mmol/L (135-145); TOTAL PROTEIN 7.6 g/dL (6.4-8.9); TRIGLYCERIDES 80 mg/dL (48-352); VLDL CHOLESTEROL 16 mg/dL
[2023-04-30 18:39] LABS: THYROID STIMULATING HORMONE 1.95 uIU/mL (0.34-5.60)
[2023-04-30 20:56] LABS: ESTIMATED AVERAGE GLUCOSE 114 mg/dL (70-100); HEMOGLOBIN A1c% 5.6 % (4.27-6.07)
== END 2023-04-30 11:31 | disposition home or self-care (01) ==
LOC: LAB.N 11:30
PROVIDERS: ATTEND Internal Medicine
DX: J47.9 Bronchiectasis, uncomplicated (principal); Z13.220 Encounter for screening for lipoid disorders; R73.9 Hyperglycemia, unspecified; E04.1 Nontoxic single thyroid nodule
CPT/HCPCS: 36415; 80053; 80061; 83036; 83721; 84443; 85025

== ENCOUNTER 2023-05-11 12:51 | Day surgery (SDC) | payer MEDICARE ==
[2023-05-11] MEDS ORDERED: LACTATED RINGERS 1,000 ML IV ONE ×2 (13:00→14:44)
[2023-05-11] MEDS ORDERED: PROPOFOL 200 MG/20 ML VIAL IVP ONE (13:03)
--- NOTE | 2023-05-11 13:29 | ANESTHESIA ---
Pre-Anesthesia VS, & Labs - Diagnosis HISTORY OF COLON POLYPS - Procedure Colonoscopy Height: 5 ft Weight (kg): 41.5 kg Body Mass Index: 17.9 BMI Classification: Underweight - NPO >8 hours - Is Patient ?: No Home Medications and Allergies Home Medications: Ambulatory Orders Celecoxib [CeleBREX] 100 mg PO DAILY 05/04/23 Fluticasone Propion/Salmeterol [Wixela 500-50 Inhub] 1 each IH BID 05/04/23 Albuterol Sulfate [Proair Hfa Inhaler] 1 - 2 puffs INH Q4H PRN 05/28/17 Celecoxib [CeleBREX] 100 mg PO DAILY 05/04/23 Fluticasone Propion/Salmeterol [Wixela 500-50 Inhub] 1 each IH BID 05/04/23 Allergies/Adverse Reactions: Allergies Allergy/AdvReac Type Severity Reaction Status Date / Time No Known Drug Allergies Allergy Verified 07/08/20 14:22 Anes History & Medical History - Anesthetic History Anesthesia Complications: reports: No previous complications - Medical History Cardiovascular: reports: None Pulmonary: reports: Asthma, Pneumonia, Tuberculosis, Other Gastrointestinal: reports: GERD, Colon polyps Urinary: reports: None Neuro: reports: None Musculoskeletal: reports: Osteoporosis Endocrine/Autoimmune: reports: None Skin: reports: None Smoking Status: Never smoker Psychosocial: reports: No issues indicated History of Cancer?: No - Surgical History General: reports: Colonoscopy Orthopedic: reports: Arthroscopic surgery Exam General: Alert, Oriented x3, Cooperative, No acute distress Dental: WNL Mouth Openin Fingerbreadth Neck Mobility: Normal Mallampati classification: II Thyromental Distance: 4-6 cm Mental/Cognitive Status: Alert/Oriented X3, Normal for patient Plan Anesthesia Type: General, Total IV Consent for Procedure(s) Verified and Reviewed: Yes Code Status: Attempt Resuscitation ASA classification: 2-Mild systemic disease Is this case an emergency?: No
[2023-05-11] MEDS ORDERED: GLYCOPYRROLATE 1 MG/5 ML VIAL ONE (13:57)
[2023-05-11 15:05] VITALS: BP 131/63; O2SAT 97
--- NOTE | 2023-05-11 15:08 | ANESTHESIA POST OP EVALUATION ---
Anesthesia Post Eval - Post Anesthesia Eval Vitals: Last Vital Signs Temp 36.1 C L 05/11/23 14:59 Pulse 78 05/11/23 14:59 Resp 15 05/11/23 14:59 BP 131/63 H 05/11/23 14:59 Pulse Ox 97 05/11/23 14:59 O2 Flow Rate CV Function Including HR & BP: Stable Pain Control: Satisfactory Nausea & Vomiting: Negative Mental Status: Baseline Respiratory Status: Airway Patent Hydration Status: Satisfactory Anesthesia Complications: None
== END 2023-05-11 12:52 | disposition home or self-care (01) ==
LOC: SDS 12:51
PROVIDERS: ATTEND Surgery
PROC: 0DBM8ZZ Excision of Descending Colon, Via Natural or Artificial Opening Endoscopic (ICD-10-PCS; principal; 2023-05-11 14:30)
DX: Z12.11 Encounter for screening for malignant neoplasm of colon (principal); K63.5 Polyp of colon; J45.909 Unspecified asthma, uncomplicated; R63.6 Underweight; Z68.1 Body mass index [BMI] 19.9 or less, adult; Z80.0 Family history of malignant neoplasm of digestive organs; Z86.010 Personal history of colon polyps
CPT/HCPCS: 45380; J7120

== ENCOUNTER 2023-12-05 12:40 | Outpatient (CLI) | payer MEDICARE ==
--- NOTE | 2023-12-06 10:37 | Mammography Report ---
BILATERAL DIGITAL SCREENING MAMMOGRAM 3D/2D: 12/05/2023 CLINICAL: Routine screening. Comparison is made to exams dated: 06/06/2022 mammogram, 06/07/2021 mammogram, 05/26/2020 mammogram, 01/20 mammogram, and 07/02/2017 mammogram - [facility]. Both breasts are extremely dense, which lowers the sensitivity of mammography (category d />75% gland ular tissue). No significant masses, calcifications, or other findings are seen in either breast. There has been no significant interval change. IMPRESSION: NEGATIVE There is no mammographic evidence of malignancy. A 1 year screening mammogram is recommended. Based on the Tyrer Cuzick model (a risk assessment model) the patient's lifetime risk is 11.3% and he r 10 year risk is 8.5%. According to the ACR, ACS, and NCCN guidelines, an annual breast MRI exam ignacio ng with mammogram is recommended if the patient's lifetime risk is 20% or greater. This exam was interpreted at Station ID: [id number]. NOTE: For mammograms, a report in lay terms will be sent to the patient. Approximately 15% of breast malignancies will not be visualized mammographically. In the management of a palpable breast mass, a negative mammogram must not discourage biopsy of a clinically suspicious lesion. Electronically Signed By: Berenice ron/russel:12/05/2023 15:45:32 letter sent: No_Letter ACR BI-RADS Category 1: Negative 3341F PARENCHYMAL PATTERN: (VD) - The breast(s) demonstrate(s) extremely dense parenchyma, limiting the sen sitivity of mammography. BI-RADS CATEGORY: (1) - 1 RECOMMENDATION: (ANNUAL) - Recommend routine annual screening mammography. [id number] 1 year screening LATERALITY: (B)
== END 2023-12-05 12:41 | disposition home or self-care (01) ==
LOC: DI 12:40
PROVIDERS: ATTEND Internal Medicine
DX: Z12.31 Encounter for screening mammogram for malignant neoplasm of breast (principal)

== ENCOUNTER 2023-12-10 11:56 | Outpatient (CLI) | payer MEDICARE ==
--- NOTE | 2023-12-10 18:45 | Ultrasound Report ---
PROCEDURE: Soft Tissue Head or Neck INDICATIONS: THYROID NODULE TECHNIQUE: Real-time scanning was performed of the thyroid gland, with image documentation. COMPARISON: None FINDINGS: Right: Thyroid lobe measures 5.9 x 1.7 x 1.7 cm. Left: Thyroid lobe measures 5.0 x 1.3 x 1.1 cm Isthmus: 0.29 cm thick. Echotexture: Heterogeneous. Nodule number: One Location: Lateral right thyroid lobe Size: 1.2 x 0.8 x 0.9 cm, previously 1.1 x 0.7 x 0.8 cm. Composition: Solid (2 points). Echogenicity: Isoechoic (1 point). Shape: wider than tall (0 points). Margins: Smooth (0 points). Echogenic foci: None (0 points). Total points: 3 ACR TI-RADS category: TI-RADS 3: Mildly suspicious. Nodule number: Two Location: Inferior right thyroid lobe Size: 0.4 x 0.4 cm, previously 0.3 x 0.5 x 0.3 cm. Composition: Cystic / almost completely cystic (0 points). Echogenicity: Anechoic (0 points). Shape: wider than tall (0 points). Margins: Smooth (0 points). Echogenic foci: None (0 points). Total points: 0 ACR TI-RADS category: TI-RADS 1: Benign. Nodule number: Three Location: Midpole left thyroid lobe Size: 0.7 x 0.6 x 0.4 cm, previously 0.7 x 0.7 x 1.1 cm. Composition: Solid (2 points). Echogenicity: Hypoechoic (2 points). Shape: wider than tall (0 points). Margins: Lobulated / Irregular (2 points). Echogenic foci: None (0 points). Total points: 6 ACR TI-RADS category: TI-RADS 4: Moderately suspicious. IMPRESSION: 1. Patient's known bilateral thyroid nodules are stable or smaller in size compared to previous study as described above. Continued ultrasound follow-up is recommended. ACR TI-RADS definitions and recommendations: TI-RADS 1 (benign): 0 points. FNA not needed. TI-RADS 2 (not suspicious): 2 points. FNA not needed. TI-RADS 3 (mildly suspicious): 3 points. "FNA if 2.5 cm or larger, follow up if 1.5 cm or larger (at 1, 3, and 5 years). TI-RADS 4 (moderately suspicious): 4-6 points. "FNA if 1.5 cm or larger, follow up if 1 cm or larger (at 1, 2, 3, and 5 years). TI-RADS 5 (highly suspicious): 7 points or more. "FNA if 1 cm or larger, follow up if 0.5 cm or larger (every year for 5 years). Reviewed by: Denny Graf MD on 12/10/2023 6:44 PM PDT Approved by: Denny Graf MD on 12/10/2023 6:44 PM PDT Station ID: [id number]
== END 2023-12-10 11:57 | disposition home or self-care (01) ==
LOC: DI 11:56
PROVIDERS: ATTEND Internal Medicine
DX: E04.2 Nontoxic multinodular goiter (principal)

== ENCOUNTER 2023-12-28 11:06 | Outpatient (CLI) | payer MEDICARE ==
--- NOTE | 2023-12-28 17:15 | DEXA Report ---
PROCEDURE: Dexa Spine and/or Hip INDICATIONS: OSTEOPOROSIS TECHNIQUE: Dual energy x-ray absorptiometry (DXA) was performed on a [employer] System. Regions measur ed are the AP Spine, femoral neck, and if needed forearm. COMPARISON: DEXA on January 10, 2022 FINDINGS: Lumbar Spine (L1-L3): Bone Mineral Density: 0.874 g/cm/cm,T score: -2.5. Since the most recent prior study, there has been a statistically significant increase in bone mineral density by 3.6 percent. Left Femoral Neck: Bone Mineral Density: 0.706 g/cm/cm, T score: -2.4. Left Hip: Bone Mineral Density: 0.675 g/cm/cm,T score: -2.6. There has been no statistically significant change in bone mineral density since the prior study. (T score greater or equal to -1.0: NORMAL) (T score from -1.1 to -2.4: OSTEOPENIA) (T score less than or equal to -2.5 to: OSTEOPOROSIS) Impression: By WHO criteria, this patient has osteoporosis. Interval statistical increase in bone mineral density of the lumbar spine. No statistical interval ch rodrigo in bone mineral density of the hip. Patients with diagnosis of osteoporosis or osteopenia should have regular bone mineral density assess ment. For those eligible for Medicare, routine testing is allowed once every 2 years. Testing frequ ency can be increased for patients who have rapidly progressing disease or for those who are receivin g medical therapy to restore bone mass. Reviewed by: Gorge Song MD on 12/28/2023 5:14 PM PDT Approved by: Gorge Song MD on 12/28/2023 5:14 PM PDT Station ID: [id number]
== END 2023-12-28 11:07 | disposition home or self-care (01) ==
LOC: DI 11:06
PROVIDERS: ATTEND Internal Medicine
DX: M81.0 Age-related osteoporosis without current pathological fracture (principal)